=== PATIENT | female | born 1975 | race Caucasian/White ===

== ENCOUNTER 2016-06-06 09:57 | Inpatient (IN) | payer MEDICAID, OTHER ==
--- NOTE | 2016-06-06 09:54 | EDPHY ---
HPI/HX/ROS/PE/MDM Narrative: CHIEF COMPLAINT: Abdominal pain, vomiting with black emesis HPI: The patient is a 38 y/o female, with a history of alcohol-induced pancreatitis, arriving via EMS complaining of worsening RLQ abdominal pain and vomiting for the last 24 hours. She reports multiple episodes of vomiting since yesterday with progressively darker emesis that became black last night. She has been unable to keep fluids down at all. EMS administered 5mg IV morphine, which improved her pain from 10/10 to 6/10 in severity. She denies associated fever. She denies history of abdominal surgeries or GI bleeds. Her last menstrual period finished yesterday; she noted her cycle was co founder and director and more intermittent than normal. REVIEW OF SYSTEMS: Aside from elements discussed in the HPI, a comprehensive 10-point review of systems was reviewed and is negative. PMH: alcohol-related pancreatitis confirmed by imaging SOCIAL HISTORY: Lives in [place]. No recent illicit drugs or alcohol use. 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 PCP: Dr. Conley PHYSICAL EXAM: General:Patient is alert, in no acute distress. Appears uncomfortable. ENT:Eyes are normal to inspection. ENT inspection normal. Neck: Normal inspection. Full range of motion. Respiratory:No respiratory distress. Breath sounds normal bilaterally. Cardiovascular: Regular rate and rhythm. Strong peripheral pulses. Normal cap refill. Abdomen:The abdomen has moderate RLQ tenderness to palpation with voluntary guarding. There are no peritoneal signs. There are normal bowel sounds. Back: Normal to inspection. No tenderness to palpation. Skin: Normal color. No rash. Warm and dry. Extremities: Normal appearance. Full range of motion. Neuro: Oriented x3. Normal motor function. Normal sensory function. Mildly tremulous. ED Course: This is a 40 y/o female, with a recent diagnosis of alcohol-induced pancreatitis , who presents with a 24-hour history of RLQ abdominal pain and multiple episodes of vomiting with coffee ground emesis. She denies recent alcohol use and has no prior history of GI bleeds or abdominal surgeries. She has moderate RLQ tenderness on exam and is mildly tremulous. She notes her LMP was somewhat abnormal. Plan for complete abdominal pain work up including UA, IV, labs, abdominal CT, and symptom management. 1mg IV Ativan, 4mg IV Zofran, and 1L IV NS administered. Study: CT of the Abdomen Indication: Pain, vomiting Results: CT scan of the abdomen was obtained. The results of the study are 1. No appendicitis. 2. Suspect remote ascending colitis. No evidence of active colitis on this exam. The terminal ileum is normal. 3. Mild hepatomegaly with steatosis. The study was read by the radiologist, Dr. Mei. I viewed the images myself on the PACS system. Several labs are abnormal including an elevated WBC at 19, CO2 of 9, elevated lipase, and abnormal LFTs. It's possible the patient's symptoms are related to alcohol withdrawal and pancreatitis. Abdominal US ordered. 1220: Additional 2mg IV Ativan administered. She reported to the RN she last consumed several shots of vodka on Tuesday, 3 days ago. Patient will require admission. Study: Ultrasound of the: Abdomen Indication: Pancreatitis, pain Results: US scan of the abdomen was obtained. The results of the study are 1. No gallstones or biliary obstruction. 2. Enlarged fatty liver. The study was read by the radiologist, Dr. Mei. I viewed the images myself on the PACS system. 1243: Spoke with hospitalist service. Dr. Mills accepts admission. 1311: RN informs me the patient is now hallucinating. Since she has perceptual disturbance associated with her alcohol withdrawal, she will now require an ICU bed. Hospitalist paged. Additional 2mg IV Ativan administered. MDM: This patient presents primarily with RLQ pain of unknown etiology. However, she appears to be suffering from acute pancreatitis, which may be source of pain , and is also in severe alcohol withdrawal, which progressed quite quickly over the course of her ED stay. She requires admission to the hospital for further testing and treatment. - Data Points Laboratory Results: Laboratory Results 06/06/16 09:58 06/06/16 09:58 06/06/16 06/06/16 06/06/16 09:58 09:58 09:58 WBC RBC Hgb Hct MCV MCH MCHC RDW Plt Count MPV Neut % (Auto) Lymph % (Auto) [place] % (Auto) Eos % (Auto) Baso % (Auto) Nucleat RBC Rel Count Absolute Neuts (auto) Absolute Lymphs (auto) Absolute Monos (auto) Absolute Eos (auto) Absolute Basos (auto) Absolute Nucleated RBC Immature Gran % Immature Gran # PT 15.0 SEC SEC (12.0-15.0) INR 1.18 H (0.83-1.16) APTT 26.2 SEC SEC (23.0-38.0) Sodium 137 mEq/L mEq/L (134-144) Potassium 5.1 mEq/L mEq/L (3.5-5.2) Chloride 96 mEq/L L mEq/L (97-110) Carbon Dioxide 9 mEq/l L* mEq/l (22-31) Anion Gap 32 mEq/L H mEq/L (8-16) BUN 12 mg/dL mg/dL (7-23) Creatinine 1.2 mg/dL H mg/dL (0.6-1.0) Estimated GFR 50 Glucose 231 mg/dL H mg/dL (70-100) Calcium 9.2 mg/dL mg/dL (8.5-10.4) Total Bilirubin 2.4 mg/dL H mg/dL (0.1-1.4) Conjugated Bilirubin 1.3 mg/dL H mg/dL (0.0-0.5) Unconjugated Bilirubin 1.1 mg/dL mg/dL (0.0-1.1) AST 352 IU/L H IU/L (14-46) ALT 179 IU/L H IU/L (9-52) Alkaline Phosphatase 134 IU/L H IU/L (38-126) Total Protein 9.5 g/dL H g/dL (6.3-8.2) Albumin 5.8 g/dL H g/dL (3.5-5.0) Lipase 1176.0 IU/L H IU/L (23-300) Beta HCG, Qual NEGATIVE 06/06/16 09:58 WBC 19.01 10^3/uL H 10^3/uL (3.80-9.50) RBC 4.29 10^6/uL 10^6/uL (4.18-5.33) Hgb 16.2 g/dL g/dL (12.6-16.3) Hct 48.8 % H % (38.0-47.0) MCV 113.8 fL H fL (81.5-99.8) MCH 37.8 pg H pg (27.9-34.1) MCHC 33.2 g/dL g/dL (32.4-36.7) RDW 13.0 % % (11.5-15.2) Plt Count 137 10^3/uL L 10^3/uL (150-400) MPV 11.9 fL H fL (8.7-11.7) Neut % (Auto) 90.4 % H % (39.3-74.2) Lymph % (Auto) 2.0 % L % (15.0-45.0) [place] % (Auto) 6.7 % % (4.5-13.0) Eos % (Auto) 0.0 % L % (0.6-7.6) Baso % (Auto) 0.2 % L % (0.3-1.7) Nucleat RBC Rel Count 0.0 % % (0.0-0.2) Absolute Neuts (auto) 17.18 10^3/uL H 10^3/uL (1.70-6.50) Absolute Lymphs (auto) 0.38 10^3/uL L 10^3/uL (1.00-3.00) Absolute Monos (auto) 1.28 10^3/uL H 10^3/uL (0.30-0.80) Absolute Eos (auto) 0.00 10^3/uL L 10^3/uL (0.03-0.40) Absolute Basos (auto) 0.04 10^3/uL 10^3/uL (0.02-0.10) Absolute Nucleated RBC 0.00 10^3/uL 10^3/uL (0-0.01) Immature Gran % 0.7 % % (0.0-1.1) Immature Gran # 0.13 10^3/uL H 10^3/uL (0.00-0.10) PT INR APTT Sodium Potassium Chloride Carbon Dioxide Anion Gap BUN Creatinine Estimated GFR Glucose Calcium Total Bilirubin Conjugated Bilirubin Unconjugated Bilirubin AST ALT Alkaline Phosphatase Total Protein Albumin Lipase Beta HCG, Qual Medications Given: Discontinued Medications Sodium Chloride (Ns) 1,000 mls @ 0 mls/hr IV ONCE ONE PRN Reason: Wide Open Stop: 06/06/16 10:06 Last Admin: 06/06/16 10:22 Dose: 1,000 mls Lorazepam (Ativan Injection) 1 mg IVP EDNOW ONE Stop: 06/06/16 11:56 Last Admin: 06/06/16 11:56 Dose: 1 mg Lorazepam (Ativan Injection) 2 mg IVP EDNOW ONE Stop: 06/06/16 12:20 Last Admin: 06/06/16 12:20 Dose: 2 mg Lorazepam (Ativan Injection) 2 mg IVP EDNOW ONE Stop: 06/06/16 13:16 Last Admin: 06/06/16 13:15 Dose: 2 mg Ondansetron HCl (Zofran) 4 mg IVP EDNOW ONE Stop: 06/06/16 11:56 Last Admin: 06/06/16 11:56 Dose: 4 mg General Initial Vital Signs: Initial Vital Signs Temperature (C) 37.1 C 06/06/16 10:16 Heart Rate 124 H 06/06/16 10:16 Respiratory Rate 18 06/06/16 10:16 Blood Pressure 120/78 06/06/16 10:16 O2 Sat (%) 94 06/06/16 10:16 O2 Delivery Mode Nasal Cannula O2 (L/minute) 1 Allergies/Adverse Reactions: No Known Allergies Allergy (Unverified 04/04/13 11:51) Home Medications: Medication Instructions Recorded traZODone [traZODONE 50MG (*)] 50 mg PO HS PRN 06/06/16 Departure - Departure Disposition: [facility] Inpatient Acute Clinical Impression: Pancreatitis Qualifiers: Chronicity: chronic Pancreatitis type: alcohol induced Qualified Code(s): K86.0 - Alcohol-induced chronic pancreatitis Alcohol withdrawal Qualifiers: Complication of substance-induced condition: with perceptual disturbance Qualified Code(s): F10.232 - Alcohol dependence with withdrawal with perceptual disturbance Condition: Serious Report Scribed for: Kolton Kang Report Scribed by: Gladis Srivastava Date of Report: 06/06/16 Time of Report: 09:51 Physician Review and Approval Statement: Portions of this note were transcribed by an ED scribe. I personally performed the history, physical exam, and medical decision making; and confirm the accuracy of the information in the transcribed note.
[2016-06-06] MEDS ORDERED: NS 1,000 ML IV ONE (10:05)
[2016-06-06 10:18] LABS: % IMMATURE GRANULYOCYTES 0.7 % (0.0-1.1); ABSOLUTE IMMATURE GRANULOCYTES 0.13 10^3/uL (0.00-0.10); ADD DIFF? NO; ADD MORPH? NO; ADD SCAN? NO; ATYPICAL LYMPHOCYTE FLAG 0 (0-99); FRAGMENT RBC FLAG 0 (0-99); HEMATOCRIT 48.8 % (38.0-47.0); HEMOGLOBIN 16.2 g/dL (12.6-16.3); LEFT SHIFT FLG 10 (0-99); LIPEMIA HEMOLYSIS FLAG 80 (0-99); MEAN CELL HEMOGLOBIN 37.8 pg (27.9-34.1); MEAN CELL HEMOGLOBIN CONCENTR. 33.2 g/dL (32.4-36.7); MEAN CELL VOLUME 113.8 fL (81.5-99.8); MEAN PLATELET VOLUME 11.9 fL (8.7-11.7); PLATELET CLUMPS FLAG 0 (0-99); PLATELET COUNT 137 10^3/uL (150-400); RED BLOOD CELL COUNT 4.29 10^6/uL (4.18-5.33)
[2016-06-06 10:33] LABS: INR 1.18 (0.83-1.16)
[2016-06-06 10:34] LABS: APTT 26.2 SEC (23.0-38.0)
[2016-06-06 10:36] LABS: ANION GAP 32 mEq/L (8-16); CALCIUM 9.2 mg/dL (8.5-10.4); CHLORIDE 96 mEq/L (97-110); CREATININE 1.2 mg/dL (0.6-1.0); GLOMERULAR FILTRATION RATE 50; GLUCOSE 231 mg/dL (70-100); POTASSIUM 5.1 mEq/L (3.5-5.2); SODIUM 137 mEq/L (134-144); TOTAL PROTEIN 9.5 g/dL (6.3-8.2)
[2016-06-06 10:37] LABS: ALANINE AMINOTRANSFERASE 179 IU/L (9-52); ALBUMIN 5.8 g/dL (3.5-5.0); ALKALINE PHOSPHATASE 134 IU/L (38-126); ASPARTATE AMINOTRANSFERASE 352 IU/L (14-46); BILIRUBIN,TOTAL 2.4 mg/dL (0.1-1.4); BILIRUBIN-CONJUGATED 1.3 mg/dL (0.0-0.5); BILIRUBIN-UNCONJUGATED 1.1 mg/dL (0.0-1.1)
[2016-06-06 10:38] LABS: CARBON DIOXIDE 9 mEq/l (22-31)
[2016-06-06] MEDS ORDERED: IOPAMIDOL (ISOVUE-300) 100 ML BTL IV ONE (10:44)
[2016-06-06] MEDS ORDERED: LORazepam 2 MG/ML INJ ONE (11:47)
[2016-06-06] MEDS ORDERED: ONDANSETRON 4 MG/2 ML VIAL ONE (11:48)
[2016-06-06] MEDS ORDERED: LORazepam 2 MG/ML INJ IVP ONE ×3 (11:55→13:15)
[2016-06-06] MEDS ORDERED: ONDANSETRON 4 MG/2 ML VIAL IVP ONE (11:55)
[2016-06-06] MEDS ORDERED: ONDANSETRON 4 MG/2 ML VIAL IVP PRN (14:02)
[2016-06-06] MEDS ORDERED: PROMETHAZINE HCL 25 MG TAB PO PRN (14:05)
[2016-06-06] MEDS ORDERED: PROMETHAZINE HCL 25 MG SUPPR PR PRN (14:05)
[2016-06-06] MEDS ORDERED: fentaNYL 100 MCG/2 ML INJ IVP PRN (14:05)
[2016-06-06] MEDS ORDERED: MIDAZOLAM 2 MG/2 ML VIAL IVP PRN (14:05)
[2016-06-06] MEDS ORDERED: ACETAMINOPHEN 325 MG TAB PO PRN (14:05)
[2016-06-06] MEDS ORDERED: ACETAMINOPHEN 325 MG SUPP PR PRN (14:05)
[2016-06-06] MEDS: LR 1,000 ML IV SCH ×2 (16:42→21:19)
[2016-06-06] MEDS: DEXMEDETOMIDINE HCL 400 MCG in NS 100 ML IV SCH (17:03)
--- NOTE | 2016-06-06 17:19 | PDGENHP ---
History and Physical History and Physical: Chief complaint: Intractable intractable nausea and vomiting History of present illness: The patient is a 40-year-old female with past medical history of alcohol pancreatitis who presented with intractable nausea, vomiting, abdominal pain. Nausea and vomiting started 24 hours ago. She claims to have vomited 115 times. Vomitus is described as yellow initially, but in the last few hours has turn black. She denies coffee-grounds in her vomitus. She denies any history vomiting blood. Abdominal pain is described as dull, but is occasionally sharp and is located in the right lower quadrant with radiation to the low back. Severity is 9/10. Resting helps the pain feel better. Movement makes the pain worse. Patient denies any diarrhea or constipation. She denies any blood in her stool. Patient says that she drinks 3-4 drinks nightly. She used to drink more, but cut back after she had pancreatitis last October. Patient c/o extreme thirst and is requesting water. She admits to developing a tremor when she has not consumed alcohol in a day. Per RN, patient was hallucinating intermittently today. Past medical history: Alcohol induced pancreatitis Past surgical history: No surgeries Medications: No medications Allergies: No known allergies Social history: Patient drinks about 4 alcoholic beverages each night. She drinks beer, wine, and cocktails. Patient smokes both cigarettes and marijuana occasionally. She denies any other drug use. She lives alone with her dog. 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 Family history: Her father from an [place] at the age of 52. Her brother from a drug overdose at the age 52. Review of systems: 10 point review of systems was conducted and is negative except per HPI Physical exam: Vitals: Reviewed. Tachycardia noted. General: The patient is a thin female who is lethargic and in moderate acute distress. HEENT: normocephalic, conjunctivae clear, no lesions on face. Mucous membranes dull and dry appearing. Neck: trachea midline, no visible masses, no external lesions. Abd: soft and nondistended. Bowel sounds present. Tender to deep palpation in RLQ > RUQ > LLQ > midepigastrium. No rebound tenderness or guarding. Musculoskeletal: Normal muscle tone and bulk. Moves all extremities equally. Neuro: cranial nerves II XII grossly intact. Intact gross motor and sensory function. +tremor w/ outstretching hands, but not full asterixis. Psych: Patient is intermittently confused. Skin: No pallor. Heme/lymph: No peripheral edema. Labs (personally interpreted): Lipase 1100, WBC 20, platelets 137, MCV 114, hematocrit 49, INR 1.2, CO2 9, anion gap 32, creatinine 1.2, elevated total/ conjugated bilirubin, elevated AST/ALT/alk-phos. Elevated total protein/ albumin. Negative beta HCG. Other Data (reviewed reports): Abdomen CT: No appendicitis. Suspect remote ascending colitis. Mild hepatomegaly with steatosis. Gallbladder distended without evidence of cholecystitis. Pancreas appears normal with 2 small benign lipomas in the body and tail. Abdomen ultrasound: Enlarged fatty liver. No gallstones or biliary obstruction. Pancreas poorly visualized. Impression and plan: Acute pancreatitis Colitis Intractable nausea/vomiting - controlled Acute dehydration Sinus tachycardia High anion gap metabolic acidosis Suspect alcoholic ketoacidosis Acute metabolic/toxic encephalopathy Acute alcohol withdrawal Alcohol abuse Suspect alcoholic fatty liver disease Abnormal liver function tests Coagulopathy Thrombocytopenia Macrocytosis SIRS, 2/2 pancreatitis and alcohol withdrawal -NPO except meds. -IVF hydration. Received about 3L NS in ED. Put her on maintenance high rate 200cc/hr LR. Decrease rate in AM if she is rehydrated. -Recheck BMP now that she has had some IVF. Expect HAGMA to improve w/ fluids. If not, will need additional workup. -Checking other labs: mag, hbA1c (no h/o DM), lactic acid. -Replace electrolytes as needed. Electrolyte ICU protocol. -Precedex gtt and Ativan scheduled, with prn additional meds for withdrawal ( midazolam, haloperidol). Monitor resp status closely - if she has resp depression, may need to be intubated. -Prn IV antiemetics. -prn narcotics for pain - caution use w/ lethargy/encephalopathy. -Ativan prn seizure, seizure assessment/precautions. -Thiamine IVP today. -VTE ppx - SCDs. -GI ppx - IV famotidine. -Code status - full code. -DISPO: Inpatient, ICU for close monitoring >60 minutes of CC time was spent for this patient, >50% of which was spent counseling and coordinating patient care.
[2016-06-06] MEDS ORDERED: THIAMINE HCL 500 MG in NS 100 ML IV ONE (17:51)
[2016-06-06] MEDS ORDERED: *PHM DO NOT USE-LORazepam 1 MG/ML IV NEWBORN SYR IV PRN (18:16)
[2016-06-06] MEDS ORDERED: LORazepam 2 MG/ML INJ IV PRN (18:20)
[2016-06-06] MEDS ORDERED: PROTOCOL POTASSIUM 1 DOSE MISC PRN (18:33)
[2016-06-06] MEDS ORDERED: PROTOCOL K PHOSPHATE 1 DOSE IV PRN (18:33)
[2016-06-06] MEDS ORDERED: PROTOCOL MAGNESIUM 1 DOSE IV PRN (18:33)
[2016-06-06 18:34] LABS: ETHANOL SERUM < 10 mg/dL (0-10)
[2016-06-06 19:08] LABS: COLOR YELLOW; LEUKOCYTE ESTERASE,URINE NEGATIVE (NEGATIVE); NITRITE,URINE NEGATIVE (NEGATIVE)
[2016-06-06 19:10] LABS: ANION GAP 11 mEq/L (8-16); CALCIUM 7.8 mg/dL (8.5-10.4); CARBON DIOXIDE 19 mEq/l (22-31); CHLORIDE 105 mEq/L (97-110); CREATININE 0.8 mg/dL (0.6-1.0); GLOMERULAR FILTRATION RATE > 60; GLUCOSE 134 mg/dL (70-100); POTASSIUM 5.3 mEq/L (3.5-5.2); SODIUM 135 mEq/L (134-144)
[2016-06-06 19:12] LABS: MUCUS TRACE /lpf (NONE-1+)
[2016-06-06] MEDS: LORazepam 1 MG TAB PO SCH ×2 (20:21→23:42)
[2016-06-06] MEDS: FAMOTIDINE 20 MG/NACL 50 ML IV SCH (21:19)
[2016-06-07 01:22] LABS: HEMOGLOBIN A1C 5.7 % (4.0-6.0)
[2016-06-07 04:41] LABS: % IMMATURE GRANULYOCYTES 0.4 % (0.0-1.1); ABSOLUTE IMMATURE GRANULOCYTES 0.04 10^3/uL (0.00-0.10); ADD DIFF? NO; ADD MORPH? NO; ADD SCAN? NO; ATYPICAL LYMPHOCYTE FLAG 0 (0-99); FRAGMENT RBC FLAG 0 (0-99); HEMATOCRIT 32.6 % (38.0-47.0); HEMOGLOBIN 11.3 g/dL (12.6-16.3); LEFT SHIFT FLG 0 (0-99); LIPEMIA HEMOLYSIS FLAG 90 (0-99); MEAN CELL HEMOGLOBIN 37.8 pg (27.9-34.1); MEAN CELL HEMOGLOBIN CONCENTR. 34.7 g/dL (32.4-36.7); MEAN PLATELET VOLUME 10.9 fL (8.7-11.7); PLATELET CLUMPS FLAG 0 (0-99); PLATELET COUNT 77 10^3/uL (150-400); RED BLOOD CELL COUNT 2.99 10^6/uL (4.18-5.33)
[2016-06-07 05:13] LABS: ANION GAP 8 mEq/L (8-16); CARBON DIOXIDE 21 mEq/l (22-31); CHLORIDE 108 mEq/L (97-110); CREATININE 0.7 mg/dL (0.6-1.0); GLOMERULAR FILTRATION RATE > 60; GLUCOSE 85 mg/dL (70-100); MAGNESIUM 1.9 mg/dL (1.6-2.3); POTASSIUM 4.7 mEq/L (3.5-5.2); SODIUM 137 mEq/L (134-144)
[2016-06-07] MEDS: LORazepam 1 MG TAB PO SCH ×2 (05:44→12:40)
[2016-06-07] MEDS: FAMOTIDINE 20 MG/NACL 50 ML IV SCH (08:42)
[2016-06-07] MEDS ORDERED: METHOCARBAMOL 750 MG TAB TUBE PRN (09:52)
[2016-06-07] MEDS ORDERED: K PHOS 20 MMOL in D5W 250 ML IV ONE (12:00)
[2016-06-07] MEDS ORDERED: SODIUM PHOS 20 MM in D5W 250 ML IV ONE (12:00)
--- NOTE | 2016-06-07 12:35 | HOSPPROG ---
Hospitalist Progress Note Assessment/Plan: # acidosis - likely ketoacidosis. resolved # pancreatitis - unclear severity; still not tolerating PO - cont supportive care # etOH abuse and withdrawal - cont CIWA, thiamine; she is off precedex - CM will give her resources for cessation; her mother is traveling to [place] today # hepatitis, suspect etOH - low DF, no steroids - check viral serologies, follow LFTs # possible GI bleed - Vilma Leonardo? - follow h/h again this afternoon - start protonix IV # thrombocytopenia - follow ## new pt to me chart reviewed CT and US reviewed discussed on ICU rounds with Dr Tavares Subjective: wants to eat; had emesis when she tried to eat Objective: Vital Signs Temp Pulse Resp BP Pulse Ox 37.0 C 79 18 115/74 94 06/07/16 12:00 06/07/16 12:00 06/07/16 12:00 06/07/16 12:00 06/07/16 10:00 Laboratory Results 06/07/16 04:30 06/07/16 04:30 06/06/16 06/07/16 06/08/16 05:59 05:59 05:59 Intake Total 7628.4 Output Total 950 300 Balance 6678.4 -300 PT 15.0 SEC (12.0-15.0) 06/06/16 09:58 INR 1.18 (0.83-1.16) H 06/06/16 09:58 - Physical Exam Constitutional: no apparent distress, appears nourished Cardiovascular: regular rate and rhythym, no murmur, rub, or gallop, systolic murmur Respiratory: no respiratory distress, no rales or rhonchi, clear to auscultation Gastrointestinal: normoactive bowel sounds, other (soft, mild TTP, no HSM) ICD10 Worksheet Patient Problems: Problems Problem Status Onset Pancreatitis Acute Alcohol withdrawal Acute
[2016-06-07 12:53] LABS: HEMATOCRIT 31.2 % (38.0-47.0); HEMOGLOBIN 10.7 g/dL (12.6-16.3)
[2016-06-07] MEDS: PANTOPRAZOLE SODIUM 40 MG in NS 100 ML IV SCH ×2 (14:01→20:11)
[2016-06-07] MEDS: HALOPERIDOL LACT 5 MG/ML INJ IVP PRN (17:22)
[2016-06-07] MEDS: LORazepam 2 MG/ML INJ IV PRN ×3 (17:22→17:28)
[2016-06-07 18:27] LABS: POTASSIUM 3.4 mEq/L (3.5-5.2)
[2016-06-07] MEDS: POTASSIUM Cl (KCl) 100 ML IV SCH ×2 (20:11→22:08)
[2016-06-07] MEDS: DEXMEDETOMIDINE HCL 400 MCG in NS 100 ML IV SCH (20:11)
[2016-06-07] MEDS: NS 1,000 ML IV SCH (20:12)
--- NOTE | 2016-06-07 21:22 | GCON ---
[f rep st] CONSULTATION PULMONARY CRITICAL CARE CONSULTATION REASON FOR CONSULTATION: Intensive care unit evaluation and management of alcohol withdrawal associ ated with nausea and vomiting, and acute pancreatitis. HISTORY: The patient is a 40-year-old chronic alcoholic, who was admitted yesterday with persistent nausea and vomiting. This has been present for up to 24 hours prior to admission, and she vomited many times. Towards the end, it was dark, with some blood in it. She had some abdominal pain as we ll. She drinks 4 drinks nightly. She does have a history of previous pancreatitis, as well as alco hol withdrawal. Following admission, she had signs and symptoms of alcohol withdrawal and hallucina tions. PAST MEDICAL HISTORY: Remarkable for issues related to chronic alcohol abuse. She has had pancreat itis in the past. SOCIAL HISTORY: The patient drinks at least 4 drinks per night. These could include hard alcohol, beer or wine. She does smoke cigarettes, less than a half-pack a day. 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 She uses marijuana as well. She is single, with some friends. Her [facility] er lives out of town. FAMILY HISTORY: Coronary artery disease in her father. REVIEW OF SYSTEMS: She denies shortness of breath, cough or mucus. She denies heart disease. Ther e is no history of arrhythmias. She does acknowledge she drinks too much. There is no history of t hromboembolic disease, lower extremity edema, etc. PHYSICAL EXAMINATION: GENERAL: Reveals a pleasant woman who is not agitated currently, but has bee n agitated intermittently. She is confused, but oriented to person, place, and the month and year. VITAL SIGNS: Blood pressure is 112/97, heart rate 74, respiratory rate 18. She is on room air, wi th saturations of 98%. She is afebrile. HEENT: Remarkable for dry mucous membranes. NECK: There is no lymphadenopathy or thyromegaly. There is no jugular venous distention. CHEST: Clear, but s omewhat coarse. There are no significant rales. HEART: Regular in rate and rhythm. There is a so ft systolic murmur. ABDOMEN: Soft and nontender. Bowel sounds are diminished, but present. EXTRE MITIES: Unremarkable for edema, cords or tenderness. NEUROLOGIC: Nonfocal. She has no significan t tremor currently. She is not diaphoretic. LABORATORY DATA: White blood cell count is 9600, hematocrit 31, down from 48 on admission. PT and PTT were normal. Blood lactate was 1 on admission. Basic metabolic panel is within normal limits. Calcium and phosphorus are both low. Urinalysis is unremarkable. Hepatitis B serology is negative . Blood alcohol on admission was less than 10. ASSESSMENT: 1. Acute pancreatitis. Lipase was approximately 1000. CT scan did not show significant abnormalit ies. She is being treated with pantoprazole, and is being kept on clear liquids for now. Her nause a and vomiting have resolved. This may have been more related to alcoholic gastritis than to acute pancreatitis? 2. Nausea and vomiting, with volume depletion. She has received intravenous fluids, and is signifi cantly better. She may have had a Vilma-Leonardo tear, as there was some bleeding. However, there i s no further evidence of any active bleeding, and hematocrit is stable in the low 30s. Upper endosc opy is not currently indicated. 3. Alcohol withdrawal. She is withdrawing from alcohol, and is being treated with Precedex, Ativan , and the CIWA protocol. We will try to wean the Precedex off over the next 24 or perhaps 48 hours. The CIWA protocol will be continued. 4. Gastrointestinal prophylaxis: Pantoprazole. 5. Deep vein thrombosis prophylaxis: We will add Lovenox. PLAN: The patient will be kept in the intensive care unit, and treated with Precedex and with the C IWA protocol. Intravenous fluids will be continued. Clear liquids will be continued. Laboratory, including lipase will be followed. Thiamin will be maintained. Antiemetics will be given as needed . Electrolytes will be replaced per protocol. Further plans and recommendations will be made based on her progress over the next 12-24 hours. /[id number]/MODL
[2016-06-07] MEDS: LORazepam 2 MG/ML INJ IVP PRN (22:08)
[2016-06-08] MEDS: POTASSIUM Cl (KCl) 100 ML IV SCH ×6 (00:12→22:14)
[2016-06-08] MEDS: DEXMEDETOMIDINE HCL 400 MCG in NS 100 ML IV SCH ×3 (00:13→20:42)
[2016-06-08] MEDS: LORazepam 2 MG/ML INJ IVP PRN ×2 (00:40→20:42)
[2016-06-08 04:19] LABS: % IMMATURE GRANULYOCYTES 0.5 % (0.0-1.1); ABSOLUTE IMMATURE GRANULOCYTES 0.04 10^3/uL (0.00-0.10); ADD DIFF? NO; ADD MORPH? NO; ADD SCAN? NO; ATYPICAL LYMPHOCYTE FLAG 0 (0-99); FRAGMENT RBC FLAG 0 (0-99); HEMATOCRIT 36.2 % (38.0-47.0); HEMOGLOBIN 12.5 g/dL (12.6-16.3); LEFT SHIFT FLG 0 (0-99); LIPEMIA HEMOLYSIS FLAG 90 (0-99); MEAN CELL HEMOGLOBIN 37.8 pg (27.9-34.1); MEAN CELL HEMOGLOBIN CONCENTR. 34.5 g/dL (32.4-36.7); MEAN CELL VOLUME 109.4 fL (81.5-99.8); MEAN PLATELET VOLUME 11.5 fL (8.7-11.7); PLATELET CLUMPS FLAG 20 (0-99); PLATELET COUNT 76 10^3/uL (150-400); RED BLOOD CELL COUNT 3.31 10^6/uL (4.18-5.33); RED CELL DISTRIBUTION WIDTH 13.2 % (11.5-15.2)
[2016-06-08 04:33] LABS: ALANINE AMINOTRANSFERASE 80 IU/L (9-52); ALBUMIN 3.2 g/dL (3.5-5.0); ALKALINE PHOSPHATASE 71 IU/L (38-126); ANION GAP 9 mEq/L (8-16); ASPARTATE AMINOTRANSFERASE 104 IU/L (14-46); BILIRUBIN,TOTAL 1.4 mg/dL (0.1-1.4); BILIRUBIN-CONJUGATED 0.6 mg/dL (0.0-0.5); BILIRUBIN-UNCONJUGATED 0.8 mg/dL (0.0-1.1); CARBON DIOXIDE 21 mEq/l (22-31); CHLORIDE 108 mEq/L (97-110); CREATININE 0.5 mg/dL (0.6-1.0); GLOMERULAR FILTRATION RATE > 60; GLUCOSE 101 mg/dL (70-100); MAGNESIUM 2.1 mg/dL (1.6-2.3); POTASSIUM 3.8 mEq/L (3.5-5.2); SODIUM 138 mEq/L (134-144); TOTAL PROTEIN 5.4 g/dL (6.3-8.2)
[2016-06-08] MEDS: NS 1,000 ML IV SCH (04:51)
[2016-06-08] MEDS: PANTOPRAZOLE SODIUM 40 MG in NS 100 ML IV SCH ×2 (09:25→20:54)
[2016-06-08] MEDS: LORazepam 2 MG/ML INJ IVP SCH ×4 (10:05→22:17)
--- NOTE | 2016-06-08 11:22 | HOSPPROG ---
Hospitalist Progress Note Assessment/Plan: # etOH abuse and withdrawal, severe - cont precedex, scheduled ativan, thiamine - try to deescalate sedatives as tolerated # pancreatitis - unclear severity; NPO, supportive care for now # acidosis - likely ketoacidosis, resolved # hepatitis, suspect etOH - low DF, no steroids - LFTs better # possible GI bleed, Vilma Leonardo? - H/H stable - protonix IV for now # thrombocytopenia - follow ## high risk given the severity of her w/d Subjective: restful night after severe agitation controlled with ativan, precedex and haldol. discussed with her mother Objective: Vital Signs Temp Pulse Resp BP Pulse Ox 36.6 C 54 L 12 132/97 H 100 06/08/16 00:00 06/08/16 06:00 06/08/16 06:00 06/08/16 06:00 06/08/16 06:00 Laboratory Results 06/08/16 04:03 06/08/16 04:03 06/07/16 06/08/16 06/09/16 05:59 05:59 05:59 Intake Total 7628.4 2445 Output Total 950 2200 120 Balance 6678.4 245 -120 PT 15.0 SEC (12.0-15.0) 06/06/16 09:58 INR 1.18 (0.83-1.16) H 06/06/16 09:58 - Physical Exam Constitutional: other (somnolent) Cardiovascular: regular rate and rhythym, no murmur, rub, or gallop Respiratory: no respiratory distress, no rales or rhonchi, clear to auscultation Gastrointestinal: normoactive bowel sounds, soft, non-tender abdomen, no palpable masses ICD10 Worksheet Patient Problems: Problems Problem Status Onset Pancreatitis Acute Alcohol withdrawal Acute
[2016-06-08] MEDS ORDERED: K PHOS 10 MMOL in D5W 250 ML IV ONE (12:00)
[2016-06-08 13:10] LABS: POTASSIUM 4.5 mEq/L (3.5-5.2)
--- NOTE | 2016-06-08 14:58 | PDINTPN ---
House Visitor Progress Note Assessment/Plan: Assessment: Alcohol withdrawal. Severely agitated yesterday, requiring high-dose Precedex, Ativan, Haldol, etc. Needed restraints to keep herself from harming herself or others. Calmer today secondary to medications but remains quite sedated. No medical issues with this. Vital signs fine, respiratory status normal. Delirium: As above Nausea vomiting: Resolved. Associated with pancreatitis by enzymes only. CT of the pancreas was normal. DVT prophylaxis: Lovenox GI prophylaxis: Pantoprazole. Metabolic: On replacement electrolyte protocols. LFTs increased secondary to chronic alcohol abuse. Platelets decreased secondary to the same Plan: Continue CIWA protocol, thiamine, etc. Decrease Ativan and Precedex as tolerated. Follow laboratory. Continue electrolyte replacement per protocols. Continue care in the intensive care unit secondary to mental status, Precedex , etc. Subjective: Somnolent secondary to medications this morning. Occasionally will arouse and communicate. In restraints, was quite agitated yesterday, a danger to herself and others. Objective: Vital Signs Temp Pulse Resp BP Pulse Ox 36.3 C 69 11 L 130/94 H 100 06/08/16 12:00 06/08/16 14:00 06/08/16 14:00 06/08/16 14:00 06/08/16 14:00 Laboratory Results 06/08/16 04:03 06/08/16 12:30 06/07/16 06/08/16 06/09/16 05:59 05:59 05:59 Intake Total 7628.4 2445 Output Total 950 2200 345 Balance 6678.4 245 -345 PT 15.0 SEC (12.0-15.0) 06/06/16 09:58 INR 1.18 (0.83-1.16) H 06/06/16 09:58 Laboratory Tests 06/08/16 04:03 Calcium 8.0 L Phosphorus 2.0 L D Magnesium 2.1 Total Bilirubin 1.4 AST 104 H ALT 80 H Albumin 3.2 L Physical Exam - Physical Exam General Appearance: no apparent distress, obtunded, No alert EENT: PERRL/EOMI, other (On room air) Neck: normal inspection Respiratory: lungs clear, decreased breath sounds, No rales, No rhonchi, No wheezing Cardiac/Chest: regular rate, rhythm Abdomen: non-tender, soft, No normal bowel sounds (Decreased, present) Pelvic Exam: other (Clark catheter placed last night) Skin: normal color, warm/dry Extremities: No pedal edema Neuro/Psych: no motor/sensory deficits, No oriented x 3 (Moves all extremities) , No cognition abnormalities ICD10 Worksheet Patient Problems: Problems Problem Status Onset Pancreatitis Acute Alcohol withdrawal Acute
[2016-06-08 17:50] LABS: POTASSIUM 3.1 mEq/L (3.5-5.2)
[2016-06-08] MEDS: HALOPERIDOL LACT 5 MG/ML INJ IVP PRN ×2 (18:34→23:04)
[2016-06-09] MEDS: DEXMEDETOMIDINE HCL 400 MCG in NS 100 ML IV SCH ×2 (00:53→06:44)
[2016-06-09] MEDS: LORazepam 2 MG/ML INJ IVP PRN (00:53)
[2016-06-09] MEDS: LORazepam 2 MG/ML INJ IVP SCH ×3 (01:39→10:00)
[2016-06-09 02:24] LABS: POTASSIUM 4.5 mEq/L (3.5-5.2)
[2016-06-09 03:45] LABS: % IMMATURE GRANULYOCYTES 0.7 % (0.0-1.1); ABSOLUTE IMMATURE GRANULOCYTES 0.06 10^3/uL (0.00-0.10); ADD DIFF? NO; ADD MORPH? NO; ADD SCAN? NO; ATYPICAL LYMPHOCYTE FLAG 10 (0-99); FRAGMENT RBC FLAG 0 (0-99); HEMOGLOBIN 12.8 g/dL (12.6-16.3); LEFT SHIFT FLG 0 (0-99); LIPEMIA HEMOLYSIS FLAG 90 (0-99); MEAN CELL HEMOGLOBIN 37.6 pg (27.9-34.1); MEAN CELL HEMOGLOBIN CONCENTR. 35.6 g/dL (32.4-36.7); MEAN CELL VOLUME 105.9 fL (81.5-99.8); MEAN PLATELET VOLUME 11.3 fL (8.7-11.7); PLATELET CLUMPS FLAG 0 (0-99); PLATELET COUNT 91 10^3/uL (150-400); RED CELL DISTRIBUTION WIDTH 12.7 % (11.5-15.2)
[2016-06-09 04:09] LABS: ANION GAP 13 mEq/L (8-16); CALCIUM 8.5 mg/dL (8.5-10.4); CARBON DIOXIDE 19 mEq/l (22-31); CHLORIDE 106 mEq/L (97-110); CREATININE 0.5 mg/dL (0.6-1.0); GLOMERULAR FILTRATION RATE > 60; GLUCOSE 78 mg/dL (70-100); MAGNESIUM 1.8 mg/dL (1.6-2.3); POTASSIUM 3.8 mEq/L (3.5-5.2); SODIUM 138 mEq/L (134-144)
[2016-06-09] MEDS ORDERED: MAGNESIUM SULF 1 GM/DEXTROSE 100 ML IV ONE (04:31)
[2016-06-09] MEDS: NS 1,000 ML IV SCH (04:57)
[2016-06-09] MEDS: POTASSIUM Cl (KCl) 100 ML IV SCH ×4 (05:41→16:45)
[2016-06-09] MEDS: PANTOPRAZOLE SODIUM 40 MG in NS 100 ML IV SCH (08:20)
[2016-06-09] MEDS ORDERED: LORazepam 2 MG/ML INJ IVP SCH (12:00)
[2016-06-09] MEDS ORDERED: K PHOS 10 MMOL in D5W 250 ML IV ONE (12:00)
[2016-06-09] MEDS: THIAMINE HCL 100 MG TAB PO SCH (12:56)
--- NOTE | 2016-06-09 13:29 | PDINTPN ---
Top Frame Maker Progress Note Assessment/Plan: Assessment: Alcohol withdrawal. Improving, off Precedex currently, can decrease Ativan and follow closely. Needed restraints to keep herself from harming herself or others initially. Delirium: As above, resolved Nausea vomiting: Resolved. Associated with pancreatitis by enzymes only. CT of the pancreas was normal. DVT prophylaxis: Lovenox GI prophylaxis: Pantoprazole. Metabolic: On replacement electrolyte protocols. LFTs increased secondary to chronic alcohol abuse. Platelets decreased secondary to the same Plan: Continue CIWA protocol, thiamine, etc. Decrease Ativan, hold Precedex if able. Follow laboratory. Continue electrolyte replacement per protocols. Continue care in the intensive care unit secondary to severity of alcohol withdrawal. If does well, can transfer out of the ICU later today or tomorrow, possibly discharge home soon. She will need alcohol counseling. In patient treatment could be considered if she and her family wants to an can go this route. Discussed with the patient's mother, nursing, and the ICU multi disciplinary team. Subjective: More alert, but still lethargic. Precedex weaned relatively rapidly this morning. Remains on scheduled Ativan. Objective: Vital Signs Temp Pulse Resp BP Pulse Ox 37.8 C 85 14 104/69 98 06/09/16 00:00 06/09/16 12:00 06/09/16 12:00 06/09/16 12:00 06/09/16 12:00 Laboratory Results 06/09/16 03:39 06/09/16 03:39 06/08/16 06/09/16 06/10/16 05:59 05:59 05:59 Intake Total 2445 2569 480 Output Total 2200 2420 800 Balance 245 149 -320 PT 15.0 SEC (12.0-15.0) 06/06/16 09:58 INR 1.18 (0.83-1.16) H 06/06/16 09:58 Laboratory Tests 06/09/16 03:39 Calcium 8.5 Phosphorus 1.8 L Magnesium 1.8 Physical Exam - Physical Exam General Appearance: no apparent distress, thin, other (Lethargic, arouses) EENT: PERRL/EOMI, other (On room air) Neck: normal inspection (No JVD) Respiratory: lungs clear, decreased breath sounds Cardiac/Chest: regular rate, rhythm Abdomen: normal bowel sounds, non-tender, soft Pelvic Exam: other (Clark catheter in place, to be removed) Skin: normal color, warm/dry Lymphatic: no adenopathy Extremities: No pedal edema Neuro/Psych: no motor/sensory deficits (Moves all extremities equally), cognition abnormalities (Improving) ICD10 Worksheet Patient Problems: Problems Problem Status Onset Pancreatitis Acute Alcohol withdrawal Acute
[2016-06-09] MEDS ORDERED: POTASSIUM Cl (KCl) 100 ML IV SCH (14:11)
[2016-06-09] MEDS ORDERED: PROTOCOL POTASSIUM 1 DOSE MISC PRN (14:33)
[2016-06-09] MEDS ORDERED: POTASSIUM CL 20 MEQ TAB PO ONE (15:00)
--- NOTE | 2016-06-09 15:36 | HOSPPROG ---
Hospitalist Progress Note Assessment/Plan: * Etoh withdrawal -off Precedex -wean benzos * Etoh pancreatitis -advancing diet * Etoh hepatitis -LFT improving -patient counselled regarding alcohol cessation * Possible GIB - ? MW tear -empiric PPI Subjective: Eating, off precedex, no agitation Objective: Vital Signs Temp Pulse Resp BP Pulse Ox 37.8 C 85 14 113/77 100 06/09/16 00:00 06/09/16 14:00 06/09/16 14:00 06/09/16 14:00 06/09/16 14:00 Laboratory Results 06/09/16 03:39 06/09/16 03:39 06/08/16 06/09/16 06/10/16 05:59 05:59 05:59 Intake Total 2445 2569 480 Output Total 2200 2420 800 Balance 245 149 -320 PT 15.0 SEC (12.0-15.0) 06/06/16 09:58 INR 1.18 (0.83-1.16) H 06/06/16 09:58 d/w Dr. Srinivas Tavares regarding benzo plan Abd US - fatty liver - Physical Exam Constitutional: no apparent distress, appears nourished, not in pain Cardiovascular: regular rate and rhythym, no murmur, rub, or gallop Respiratory: no respiratory distress, no rales or rhonchi, clear to auscultation Gastrointestinal: normoactive bowel sounds, soft, non-tender abdomen, no palpable masses Skin: no rashes or abrasions, no fluctuance, no induration Neurologic: AAOx3, sensation intact bilaterally Psychiatric: interacting appropriately, not anxious, not encephalopathic, thought process linear ICD10 Worksheet Patient Problems: Problems Problem Status Onset Alcohol withdrawal Acute Pancreatitis Acute
[2016-06-09 20:12] LABS: POTASSIUM 3.3 mEq/L (3.5-5.2)
[2016-06-09] MEDS ORDERED: POTASSIUM CL 10 MEQ TAB PO ONE (20:37)
[2016-06-09] MEDS ORDERED: FAMOTIDINE 20 MG TAB PO SCH (21:00)
[2016-06-09] MEDS: traZODone 50 MG TAB PO PRN (22:01)
[2016-06-10 04:01] LABS: % IMMATURE GRANULYOCYTES 1.1 % (0.0-1.1); ABSOLUTE IMMATURE GRANULOCYTES 0.08 10^3/uL (0.00-0.10); ADD DIFF? NO; ADD MORPH? NO; ADD SCAN? NO; ATYPICAL LYMPHOCYTE FLAG 10 (0-99); FRAGMENT RBC FLAG 0 (0-99); HEMATOCRIT 35.1 % (38.0-47.0); HEMOGLOBIN 12.8 g/dL (12.6-16.3); LEFT SHIFT FLG 10 (0-99); LIPEMIA HEMOLYSIS FLAG 90 (0-99); MEAN CELL HEMOGLOBIN CONCENTR. 36.5 g/dL (32.4-36.7); MEAN CELL VOLUME 104.2 fL (81.5-99.8); MEAN PLATELET VOLUME 10.9 fL (8.7-11.7); PLATELET CLUMPS FLAG 0 (0-99); PLATELET COUNT 117 10^3/uL (150-400); RED BLOOD CELL COUNT 3.37 10^6/uL (4.18-5.33); RED CELL DISTRIBUTION WIDTH 12.5 % (11.5-15.2)
[2016-06-10 04:18] LABS: ANION GAP 10 mEq/L (8-16); CALCIUM 8.5 mg/dL (8.5-10.4); CARBON DIOXIDE 24 mEq/l (22-31); CHLORIDE 102 mEq/L (97-110); CREATININE 0.5 mg/dL (0.6-1.0); GLOMERULAR FILTRATION RATE > 60; GLUCOSE 98 mg/dL (70-100); MAGNESIUM 1.7 mg/dL (1.6-2.3); POTASSIUM 3.5 mEq/L (3.5-5.2); SODIUM 136 mEq/L (134-144)
[2016-06-10] MEDS ORDERED: POTASSIUM CL 10 MEQ TAB PO ONE (06:14)
[2016-06-10] MEDS: THIAMINE HCL 100 MG TAB PO SCH (07:48)
[2016-06-10] MEDS: PANTOPRAZOLE SODIUM 40 MG TAB PO SCH (07:48)
[2016-06-10] MEDS: LORazepam 1 MG TAB PO PRN ×3 (07:48→21:42)
--- NOTE | 2016-06-10 16:56 | HOSPPROG ---
Hospitalist Progress Note Assessment/Plan: * Etoh withdrawal -off Precedex -wean benzos * Etoh pancreatitis -advancing diet * Etoh hepatitis -LFT improving -patient counselled regarding alcohol cessation * Possible GIB - ? MW tear -empiric PPI * Metabolic/toxic encephalopathy -mental status slowly clearly -poor ambulation with PT/OT -hopefully with clear in next 24-48 hours Subjective: no complaints. Objective: Vital Signs Temp Pulse Resp BP Pulse Ox 36.7 C 104 H 20 129/86 H 91 L 06/10/16 15:40 06/10/16 15:40 06/10/16 15:40 06/10/16 15:40 06/10/16 15:40 Laboratory Results 06/10/16 03:50 06/10/16 03:50 06/09/16 06/10/16 06/11/16 05:59 05:59 05:59 Intake Total 2569 2140 Output Total 2420 2500 2 Balance 149 -360 -2 PT 15.0 SEC (12.0-15.0) 06/06/16 09:58 INR 1.18 (0.83-1.16) H 06/06/16 09:58 - Physical Exam Constitutional: no apparent distress, appears nourished, not in pain Cardiovascular: regular rate and rhythym, no murmur, rub, or gallop Respiratory: no respiratory distress, no rales or rhonchi, clear to auscultation Gastrointestinal: normoactive bowel sounds, soft, non-tender abdomen, no palpable masses Skin: no rashes or abrasions, no fluctuance, no induration Neurologic: AAOx3, sensation intact bilaterally Psychiatric: interacting appropriately, not anxious, not encephalopathic, thought process linear ICD10 Worksheet Patient Problems: Problems Problem Status Onset Alcohol withdrawal Acute Pancreatitis Acute
[2016-06-10] MEDS: traZODone 50 MG TAB PO PRN (21:42)
[2016-06-11] MEDS: LORazepam 2 MG/ML INJ IVP PRN ×3 (00:51→13:51)
[2016-06-11 04:02] LABS: MAGNESIUM 1.7 mg/dL (1.6-2.3); POTASSIUM 3.3 mEq/L (3.5-5.2)
[2016-06-11] MEDS: PANTOPRAZOLE SODIUM 40 MG TAB PO SCH (08:27)
[2016-06-11] MEDS: THIAMINE HCL 100 MG TAB PO SCH (08:27)
[2016-06-11] MEDS: LORazepam 1 MG TAB PO PRN (08:28)
[2016-06-11] MEDS ORDERED: POTASSIUM CL 10 MEQ TAB PO ONE ×2 (10:30→19:22)
[2016-06-11] MEDS ORDERED: MAGNESIUM SULF 1 GM/DEXTROSE 100 ML IV ONE (10:48)
[2016-06-11] MEDS ORDERED: LORazepam 1 MG TAB PO SCH (14:10)
--- NOTE | 2016-06-11 15:07 | HOSPPROG ---
Hospitalist Progress Note Assessment/Plan: * Etoh withdrawal - CIWA still with elevated scores, active hallucinations -off Precedex -wean benzos * Etoh pancreatitis -advancing diet * Etoh hepatitis -LFT improving -patient counselled regarding alcohol cessation * Possible GIB - ? MW tear -empiric PPI * Metabolic/toxic encephalopathy -mental status slowly clearly -poor ambulation with PT/OT -hopefully with clear in next 24-48 hours Subjective: no new complaints. Objective: Vital Signs Temp Pulse Resp BP Pulse Ox 37.0 C 82 18 122/87 H 100 06/11/16 08:00 06/11/16 08:00 06/11/16 08:00 06/11/16 08:00 06/11/16 08:00 Laboratory Results 06/10/16 03:50 06/11/16 03:36 06/10/16 06/11/16 06/12/16 05:59 05:59 05:59 Intake Total 2140 1400 103 Output Total 2500 2 Balance -360 1398 103 PT 15.0 SEC (12.0-15.0) 06/06/16 09:58 INR 1.18 (0.83-1.16) H 06/06/16 09:58 - Physical Exam Constitutional: no apparent distress, appears nourished, not in pain Cardiovascular: regular rate and rhythym, no murmur, rub, or gallop Respiratory: no respiratory distress, no rales or rhonchi, clear to auscultation Gastrointestinal: normoactive bowel sounds, soft, non-tender abdomen, no palpable masses Skin: no rashes or abrasions, no fluctuance, no induration Neurologic: AAOx3, sensation intact bilaterally, other (gait unsteady, falls backward unexpectedly, ataxic) Psychiatric: interacting appropriately, not anxious, not encephalopathic, thought process linear ICD10 Worksheet Patient Problems: Problems Problem Status Onset Alcohol withdrawal Acute Pancreatitis Acute
[2016-06-11] MEDS: OLANZapine 2.5 MG TAB PO PRN (15:39)
[2016-06-11 17:43] LABS: POTASSIUM 3.8 mEq/L (3.5-5.2)
[2016-06-12] MEDS: LORazepam 1 MG TAB PO PRN ×2 (01:16→04:43)
[2016-06-12] MEDS: OLANZapine 2.5 MG TAB PO PRN ×2 (01:46→07:56)
[2016-06-12] MEDS: traZODone 50 MG TAB PO PRN (04:04)
[2016-06-12 05:21] LABS: POTASSIUM 3.8 mEq/L (3.5-5.2)
[2016-06-12] MEDS ORDERED: POTASSIUM CL 10 MEQ TAB PO ONE (07:11)
[2016-06-12] MEDS: THIAMINE HCL 100 MG TAB PO SCH (07:56)
[2016-06-12] MEDS: PANTOPRAZOLE SODIUM 40 MG TAB PO SCH (07:56)
[2016-06-12] MEDS: LORazepam 2 MG/ML INJ IVP PRN (08:07)
[2016-06-12] MEDS ORDERED: ZIPRASIDONE MESYLATE 20 MG VIAL IM ONE (09:42)
[2016-06-12] MEDS ORDERED: ZIPRASIDONE HCL 40 MG CAP PO PRN (09:43)
[2016-06-12] MEDS ORDERED: LORazepam 2 MG/ML INJ IVP PRN (09:44)
--- NOTE | 2016-06-12 15:43 | HOSPPROG ---
Hospitalist Progress Note Assessment/Plan: * Etoh withdrawal - CIWA still with elevated scores, active hallucinations -benzos + anti-psychotics -very confused, doesn't know where she is, trying aggressively to leave -she is danger to self -medically detained as she does not understand consequences at this point -mother at bedside - she is medical proxy - she desires ongoing medical treatment * Etoh pancreatitis -advancing diet * Etoh hepatitis -LFT improving -patient counselled regarding alcohol cessation * Possible GIB - ? MW tear -empiric PPI * Metabolic/toxic encephalopathy - severe - ongoing DTs -poor ambulation with PT/OT -hopefully with clear in next 24-48 hours * Depression - mom reports possible suicidal ideation -will inquire with patient when able Subjective: Agitated, thinks she is in dentist office Objective: Vital Signs Temp Pulse Resp BP Pulse Ox 36.4 C 84 14 108/67 98 06/12/16 07:36 06/12/16 12:45 06/12/16 12:45 06/12/16 12:45 06/12/16 12:45 Laboratory Results 06/10/16 03:50 06/12/16 04:30 06/11/16 06/12/16 06/13/16 05:59 05:59 05:59 Intake Total 1400 603 Output Total 2 Balance 1398 603 PT 15.0 SEC (12.0-15.0) 06/06/16 09:58 INR 1.18 (0.83-1.16) H 06/06/16 09:58 - Physical Exam Constitutional: no apparent distress, appears nourished, not in pain Cardiovascular: regular rate and rhythym, no murmur, rub, or gallop Respiratory: no respiratory distress, no rales or rhonchi, clear to auscultation Gastrointestinal: normoactive bowel sounds, soft, non-tender abdomen, no palpable masses Skin: no rashes or abrasions, no fluctuance, no induration Neurologic: AAOx3, sensation intact bilaterally Psychiatric: interacting appropriately, not anxious, not encephalopathic, thought process linear ICD10 Worksheet Patient Problems: Problems Problem Status Onset Alcohol withdrawal Acute Pancreatitis Acute
[2016-06-13 00:05] VITALS: TEMP 98.1
[2016-06-13 04:35] LABS: ADD DIFF? YES; ADD MORPH? NO; ADD SCAN? NO; ATYPICAL LYMPHOCYTE FLAG 40 (0-99); FRAGMENT RBC FLAG 0 (0-99); HEMATOCRIT 39.2 % (38.0-47.0); HEMOGLOBIN 13.9 g/dL (12.6-16.3); LEFT SHIFT FLG 20 (0-99); LIPEMIA HEMOLYSIS FLAG 90 (0-99); MEAN CELL HEMOGLOBIN 37.4 pg (27.9-34.1); MEAN CELL HEMOGLOBIN CONCENTR. 35.5 g/dL (32.4-36.7); MEAN CELL VOLUME 105.4 fL (81.5-99.8); MEAN PLATELET VOLUME 10.4 fL (8.7-11.7); PLATELET CLUMPS FLAG 20 (0-99); PLATELET COUNT 225 10^3/uL (150-400); RED BLOOD CELL COUNT 3.72 10^6/uL (4.18-5.33); RED CELL DISTRIBUTION WIDTH 13.2 % (11.5-15.2)
[2016-06-13 04:42] LABS: ANION GAP 13 mEq/L (8-16); CALCIUM 9.2 mg/dL (8.5-10.4); CARBON DIOXIDE 23 mEq/l (22-31); CHLORIDE 101 mEq/L (97-110); CREATININE 0.6 mg/dL (0.6-1.0); GLOMERULAR FILTRATION RATE > 60; GLUCOSE 98 mg/dL (70-100); POTASSIUM 3.7 mEq/L (3.5-5.2); SODIUM 137 mEq/L (134-144)
[2016-06-13 05:23] LABS: PLATELET ESTIMATE ADEQUATE (ADEQ)
[2016-06-13 08:16] VITALS: BP 98/70; PULSE 91; RESP 14; O2SAT 96
[2016-06-13] MEDS: THIAMINE HCL 100 MG TAB PO SCH (08:54)
[2016-06-13] MEDS: PANTOPRAZOLE SODIUM 40 MG TAB PO SCH (08:54)
--- NOTE | 2016-06-13 15:48 | GDS ---
[f rep st] DISCHARGE SUMMARY DISCHARGE DIAGNOSES: 1. Severe alcohol withdrawal. 2. Alcoholic pancreatitis. 3. Alcoholic hepatitis. 4. Gastrointestinal bleed, suspect Vilma-Leonardo tear. 5. Metabolic and toxic encephalopathy. HISTORY: The patient is a 40-year-old female who was drinking heavily until presentation. She pres ented with alcoholic pancreatitis. HOSPITAL COURSE: She went into very severe alcohol withdrawal requiring a prolonged ICU stay, inclu ding a Precedex drip. Her pancreatitis and hepatitis both resolved during this hospitalization. She did have a possible G I bleed, which was suspicious to be a Vilma-Leonardo tear and she was treated empirically with a prot on pump inhibitor, without recurrence. Her mental status and weakness were quite prolonged, with active hallucinations and DTs. Eventually, she did completely clear. On the morning of discharge, she is alert and oriented x3, ambulatory and back to her normal self. Social Work and Behavioral Health have worked with her extensively. Her mom was at bedside through most of this. She has been given resources for alcohol cessation. She plans to return to [facility] with her mom in the short term. DISCHARGE MEDICATIONS: Please see computer record for full detailed list. There were no new medica tions given at the time of hospital discharge. ADDITIONAL DISCHARGE INSTRUCTIONS: Extensive resources given for alcohol treatment. TIME SPENT: Greater than 30 minutes time was spent arranging this discharge. Patient seen examined by me on the day of discharge. /[id number]/MODL
== END 2016-06-13 13:22 | disposition home or self-care (01) | DRG 438 ==
LOC: EDUNIT# → OBSVTOIN 14:20 → F2N 16:16 → F3E 06-11 18:02
PROVIDERS: ADMIT Internal Medicine; ATTEND Internal Medicine
DX: K85.20 Alcohol induced acute pancreatitis without necrosis or infection (principal); K70.10 Alcoholic hepatitis without ascites; F10.232 Alcohol dependence with withdrawal with perceptual disturbance; K22.6 Gastro-esophageal laceration-hemorrhage syndrome; G92 Toxic encephalopathy; F32.9 Major depressive disorder, single episode, unspecified
CPT/HCPCS: 96374; 97112-GP; 97116-GP; 97161-GP; 97162-GP; 97166-GO; 97535-GO; G0472; G0480; J2060; J2405; J3411; J3475; J3486; Q9967

== ENCOUNTER 2017-02-21 17:15 | Inpatient (IN) | payer MEDICAID ==
--- NOTE | 2017-02-21 17:25 | EDPHY ---
H & P Time Seen by Provider: 02/21/17 17:25 HPI/ROS: HPI: This is a 41-year-old female presents with Chief Complaint: Nausea and vomiting Location: Epigastric Quality: Nausea vomiting Duration: Since 4:00 a.m. Signs and Symptoms: no fever, + nausea, + vomiting, + hematemesis, no blood in stool, no abdominal bloating, no diarrhea, no back pain, no urinary symptoms, no vaginal bleeding/discharge, no indigestion, no chest pain, no shortness of breath Timing: Sudden, intermittent episodes Severity: Moderate to severe Context: Patient has a history of alcoholic pancreatitis, alcohol abuse, severe alcohol withdrawal syndrome and upper GI bleeding presents to the ER via ambulance as she reports that she woke up at 4:00 a.m. sudden onset of nausea vomiting occurring every several minutes. She became concerned when over the last hour she started to cough up a dark reddish liquid. She denies any NSAID use. She reports that she has epigastric constant, severe, nonradiating, burning discomfort accompanied by right upper quadrant discomfort that is moderate in nature. She reports that her last drink of alcohol was approximately 12 hr ago and that she normally goes into withdrawal if she has had alcohol within 24 hr. She drinks vodka daily. Chart review shows that her last ER visit that resulted in a admission occurred 06/06/2016 for alcoholic pancreatitis, alcoholic pancreatitis, gastrointestinal bleed with suspected Vilma-Leonardo chair and metabolic and toxic encephalopathy. Due to severe alcohol withdrawal she required a prolonged ICU stay including a Precedex drip. In regards to her Vilma-Leonardo tear she was treated empirically with a proton pump inhibitor without recurrence. Patient reports that she is no longer taking a proton pump inhibitor. Modifying Factors: On route she received 500 cc of normal saline and 8 mg of IV Zofran by EMS without resolution of nausea, vomiting. Comment: ROS: see HPI Constitutional: No fever, no chills, no weight loss Eyes: No blurred vision Respiratory: No shortness of breath, no cough Cardiovascular: No chest pain, no palpitations Gastrointestinal: + nausea, + vomiting, no diarrhea, no hematemesis, no blood in stool Genitourinary: No dysuria, no blood in urine Extremities: No myalgias, no edema Neurologic: No weakness, no numbness Skin: No rashes, no petechiae Hematologic: No bruising, no bleeding MEDICAL/SURGICAL/SOCIAL HISTORY: Medical history: Takes trazodone Surgical history: Denies Social history: CONSTITUTIONAL: awake and alert, no obvious distress HEENT: Atraumatic and normocephalic, PERRL, EOMI. Tympanic membranes clear. Oropharynx clear, no exudate and moist pink mucosa. Airway patent. No lymphadenopathy. No meningismus. Cardiovascular: Normal S1/S2, tachycardia, regular rhythm, without murmur rub or gallop. PULMONARY/CHEST: Symmetrical and nontender. Clear to auscultation bilaterally. Good air movement. No accessory muscle usage. ABDOMEN: Soft, nondistended, right upper quadrant and epigastric moderate tenderness, no rebound, no guarding, no peritoneal signs, no masses or organomegaly. No CVAT. EXTREMITIES: 2/2 pulses, strength 5/5, no deformities, no clubbing, no cyanosis or edema. NEUROLOGICAL: no focal neuro deficits. GCS 15. SKIN: Warm and dry, no erythema. no rash. Good capillary refill. Source: Patient Exam Limitations: No limitations - Medical/Surgical History Hx Asthma: No Hx Chronic Respiratory Disease: No Hx Diabetes: No Hx Cardiac Disease: No Hx Renal Disease: No Hx Cirrhosis: No Hx Alcoholism: No Hx HIV/AIDS: No Hx Splenectomy or Spleen Trauma: No Other PMH: Medical- Denies. Surgical- Denies - Social History Smoking Status: Former smoker Constitutional: Initial Vital Signs Temperature (C) 37 C 02/21/17 17:15 Heart Rate 127 H 02/21/17 17:15 Respiratory Rate 20 02/21/17 17:15 Blood Pressure 107/70 02/21/17 17:15 O2 Sat (%) 96 02/21/17 17:15 O2 Delivery Mode Room Air Allergies/Adverse Reactions: No Known Allergies Allergy (Unverified 04/04/13 11:51) Home Medications: Medication Instructions Recorded NK [No Known Home Meds] 02/21/17 Medical Decision Making - Diagnostics Imaging Results: Imaging Impressions Abdomen X-Ray 02/21/17 17:30 Impression: Abdomen negative for acute localizing features. Specifically, negative for free air. Abdomen/Pelvis CT 02/21/17 17:30 Impression: 1. No nephrolithiasis or hydronephrosis. 2. Probable chronic ascending colitis similar to the June 2016 study. Consider follow-up colonoscopy. 3. Hepatomegaly and hepatic steatosis, without ascites or biliary ductal dilation. 4. Mild atherosclerotic aorta, without aneurysm. Attention: This CT examination is specifically designed to evaluate patients who are clinically suspected of having acute obstructive uropathy. This examination does not use radiographic contrast, and as such, provides only a limited evaluation of the abdomen, pelvis, and retroperitoneum. If there is further clinical suspicion for pathological conditions other than obstructive uropathy, a complete CT evaluation of the abdomen and pelvis utilizing intravenous, oral, and rectal contrast should be considered. Findings and recommendations discussed with Emergency Department physician, Lucía Miller PA-C, at 2025 hours, on February 21, 2017. Final report concurs with initial preliminary interpretation. ED Course/Re-evaluation: Labs, IV fluids, KUB, CT abdomen and pelvis scan, IV medications ordered Occult gastric fluid ordered as concern for upper GI bleed. Heart rate 150s upon arrival Abdominal x-ray my read shows no free air/perforation 1740: Given IV Protonix 80 mg bolus followed by continuous infusion; IV fluids; IV Ativan; IV promethazine 1900: Notified by nursing that blood draw hemolyzed and had to be redrawn and labs reordered. 1920: Lactic acid 10.8 WBCs 20K; severe sepsis protocol initiated Given normal saline 30 mL/kg and IV Invanz ordered for presumed intra-abdominal infection Creatinine 1.5; decision to order CT abdomen and pelvis scan without contrast. Reassessed patient who reports that she has had no vomiting episodes in over 3 hr. She is asking for ice chips. 2020: ED decision to consult for admission, spoke with hospitalist, Dr. Araiza , suspect alcoholic gastritis with bleeding, Vilma-Leonardo tear. Repeat lactic acid down to 6.4 and potassium i-STAT 5.6 with aggressive IV hydration of 4 L This patient was seen under the supervision of my secondary supervising physician. I evaluated care for this patient independently. Discussed this patient with Dr. Lewis who did not see the patient. Patient's presentation, labs/imaging, treatment and plan of care were discussed with secondary supervising physician. Differential Diagnosis: Abdominal pain including but not limited to appendicitis, cholecystitis, pancreatitis, upper GI bleed, gastritis and urinary tract infection. - Data Points Laboratory Results: Laboratory Results 02/21/17 17:15 02/21/17 18:55 02/21/17 02/21/17 02/21/17 20:12 20:10 18:55 WBC RBC Hgb Hct MCV MCH MCHC RDW Plt Count MPV Neut % (Auto) Lymph % (Auto) [place] % (Auto) Eos % (Auto) Baso % (Auto) Nucleat RBC Rel Count Absolute Neuts (auto) Absolute Lymphs (auto) Absolute Monos (auto) Absolute Eos (auto) Absolute Basos (auto) Absolute Nucleated RBC Immature Gran % Immature Gran # Platelet Estimate Oval Macrocytes Smear Review By PT INR APTT VBG Lactic Acid 6.4 mmol/L H mmol/L (0.7-2.1) Sodium 139 mEq/L mEq/L (134-144) Potassium 6.6 mEq/L H* mEq/L (3.5-5.2) Chloride 103 mEq/L mEq/L (97-110) Carbon Dioxide 7 mEq/l L* mEq/l (22-31) Anion Gap 29 mEq/L H mEq/L (8-16) BUN 12 mg/dL mg/dL (7-23) Creatinine 1.5 mg/dL H mg/dL (0.6-1.0) Estimated GFR 38 Glucose 87 mg/dL mg/dL (70-100) Calcium 8.3 mg/dL L mg/dL (8.5-10.4) Total Bilirubin 0.8 mg/dL mg/dL (0.1-1.4) Conjugated Bilirubin Unconjugated Bilirubin AST 233 IU/L H IU/L (14-46) ALT 125 IU/L H IU/L (9-52) Alkaline Phosphatase 96 IU/L IU/L (38-126) Total Protein 6.6 g/dL g/dL (6.3-8.2) Albumin 4.4 g/dL g/dL (3.5-5.0) Amylase 122 IU/L H IU/L (30-110) Lipase 106 IU/L IU/L (23-300) Beta HCG, Qual Specimen Hemolysis Ethyl Alcohol 12 mg/dL H mg/dL (0-10) 02/21/17 02/21/17 02/21/17 18:55 17:15 17:15 WBC RBC Hgb Hct MCV MCH MCHC RDW Plt Count MPV Neut % (Auto) Lymph % (Auto) [place] % (Auto) Eos % (Auto) Baso % (Auto) Nucleat RBC Rel Count Absolute Neuts (auto) Absolute Lymphs (auto) Absolute Monos (auto) Absolute Eos (auto) Absolute Basos (auto) Absolute Nucleated RBC Immature Gran % Immature Gran # Platelet Estimate Oval Macrocytes Smear Review By PT INR APTT VBG Lactic Acid 10.8 mmol/L H mmol/L (0.7-2.1) Sodium TNP Potassium TNP Chloride TNP Carbon Dioxide TNP Anion Gap TNP BUN TNP Creatinine TNP Estimated GFR TNP Glucose TNP Calcium TNP Total Bilirubin TNP Conjugated Bilirubin TNP Unconjugated Bilirubin TNP AST TNP ALT TNP Alkaline Phosphatase TNP Total Protein TNP Albumin TNP Amylase TNP Lipase TNP Beta HCG, Qual NEGATIVE Specimen Hemolysis TNP Ethyl Alcohol TNP 02/21/17 02/21/17 17:15 17:15 WBC 20.89 10^3/uL H 10^3/uL (3.80-9.50) RBC 4.43 10^6/uL 10^6/uL (4.18-5.33) Hgb 16.7 g/dL H g/dL (12.6-16.3) Hct 52.8 % H % (38.0-47.0) MCV 119.2 fL H fL (81.5-99.8) MCH 37.7 pg H pg (27.9-34.1) MCHC 31.6 g/dL L g/dL (32.4-36.7) RDW 13.5 % % (11.5-15.2) Plt Count 157 10^3/uL 10^3/uL (150-400) MPV 11.6 fL fL (8.7-11.7) Neut % (Auto) 89.3 % H % (39.3-74.2) Lymph % (Auto) 2.6 % L % (15.0-45.0) [place] % (Auto) 7.1 % % (4.5-13.0) Eos % (Auto) 0.0 % L % (0.6-7.6) Baso % (Auto) 0.3 % % (0.3-1.7) Nucleat RBC Rel Count 0.0 % % (0.0-0.2) Absolute Neuts (auto) 18.62 10^3/uL H 10^3/uL (1.70-6.50) Absolute Lymphs (auto) 0.55 10^3/uL L 10^3/uL (1.00-3.00) Absolute Monos (auto) 1.49 10^3/uL H 10^3/uL (0.30-0.80) Absolute Eos (auto) 0.01 10^3/uL L 10^3/uL (0.03-0.40) Absolute Basos (auto) 0.07 10^3/uL 10^3/uL (0.02-0.10) Absolute Nucleated RBC 0.00 10^3/uL 10^3/uL (0-0.01) Immature Gran % 0.7 % % (0.0-1.1) Immature Gran # 0.15 10^3/uL H 10^3/uL (0.00-0.10) Platelet Estimate ADEQUATE (ADEQ) Oval Macrocytes 1+ H Smear Review By Pending PT 16.6 SEC H SEC (12.0-15.0) INR 1.32 H (0.83-1.16) APTT 32.0 SEC SEC (23.0-38.0) VBG Lactic Acid Sodium Potassium Chloride Carbon Dioxide Anion Gap BUN Creatinine Estimated GFR Glucose Calcium Total Bilirubin Conjugated Bilirubin Unconjugated Bilirubin AST ALT Alkaline Phosphatase Total Protein Albumin Amylase Lipase Beta HCG, Qual Specimen Hemolysis Ethyl Alcohol Medications Given: Dextrose/Sodium Chloride (D5w 1/2 Ns) 1,000 mls @ 100 mls/hr IV CONT JASS Stop: 08/20/17 22:29 Last Admin: 02/21/17 23:16 Dose: 1,000 mls Thiamine HCl 500 mg/ Sodium (Chloride) 105 mls @ 210 mls/hr IV DAILY JASS Stop: 02/24/17 22:29 Last Admin: 02/21/17 23:16 Dose: 105 mls Discontinued Medications Ertapenem (Invanz) 1 gm IVP EDNOW ONE PRN Reason: Protocol Stop: 02/21/17 19:20 Last Admin: 02/21/17 20:16 Dose: 1 gm Sodium Chloride (Ns) 1,000 mls @ 0 mls/hr IV EDNOW ONE; Wide Open PRN Reason: Protocol Stop: 02/21/17 17:31 Last Admin: 02/21/17 17:54 Dose: 1,000 mls Sodium Chloride (Ns) 1,000 mls @ 0 mls/hr IV EDNOW ONE; Wide Open PRN Reason: Protocol Stop: 02/21/17 17:31 Last Admin: 02/21/17 17:55 Dose: 1,000 mls Pantoprazole Sodium 80 mg/ (Sodium Chloride) 100 mls @ 200 mls/hr IV ONCE ONE Stop: 02/21/17 18:00 Last Admin: 02/21/17 18:43 Dose: 100 mls Pantoprazole Sodium 80 mg/ (Sodium Chloride) 100 mls @ 10 mls/hr IV Q10H ONE Stop: 02/22/17 03:29 Last Admin: 02/21/17 19:14 Dose: 100 mls Sodium Chloride (Ns) 1,600 mls @ 3,200 mls/hr 30 ml/kg infuse over 30 min ( 1600 ml) IV EDNOW ONE PRN Reason: Protocol Stop: 02/21/17 19:48 Last Admin: 02/21/17 19:57 Dose: 1,600 mls Lorazepam (Ativan Injection) 2 mg IVP EDNOW ONE Stop: 02/21/17 17:36 Last Admin: 02/21/17 17:56 Dose: 2 mg Ondansetron HCl (Zofran) 4 mg IVP EDNOW ONE Stop: 02/21/17 17:36 Last Admin: 02/21/17 18:03 Dose: Not Given Promethazine HCl (Phenergan) 12.5 mg IVP ONCE ONE Stop: 02/21/17 17:40 Last Admin: 02/21/17 17:56 Dose: 12.5 mg Departure - Departure Disposition: [facility] Acute Clinical Impression: Alcohol abuse, Hyperkalemia, Severe sepsis Alcoholic gastritis with bleeding Qualifiers: Chronicity: acute Qualified Code(s): K29.21 - Alcoholic gastritis with bleeding Condition: Fair
[2017-02-21] MEDS ORDERED: PANTOPRAZOLE SODIUM 80 MG in NS 100 ML IV ONE ×2 (17:30→17:31)
[2017-02-21] MEDS ORDERED: NS 1,000 ML IV ONE ×2 (17:30)
[2017-02-21] MEDS ORDERED: ONDANSETRON 4 MG/2 ML VIAL IVP ONE (17:35)
[2017-02-21] MEDS ORDERED: LORazepam 2 MG/ML INJ IVP ONE (17:35)
[2017-02-21] MEDS ORDERED: PROMETHAZINE HCL 25 MG/ML INJ IVP ONE (17:39)
[2017-02-21 17:52] LABS: % IMMATURE GRANULYOCYTES 0.7 % (0.0-1.1); ABSOLUTE IMMATURE GRANULOCYTES 0.15 10^3/uL (0.00-0.10); ADD DIFF? NO; ADD MORPH? YES; ADD SCAN? NO; ATYPICAL LYMPHOCYTE FLAG 0 (0-99); FRAGMENT RBC FLAG 0 (0-99); HEMATOCRIT 52.8 % (38.0-47.0); HEMOGLOBIN 16.7 g/dL (12.6-16.3); LEFT SHIFT FLG 20 (0-99); LIPEMIA HEMOLYSIS FLAG 80 (0-99); MEAN CELL HEMOGLOBIN 37.7 pg (27.9-34.1); MEAN CELL HEMOGLOBIN CONCENTR. 31.6 g/dL (32.4-36.7); MEAN PLATELET VOLUME 11.6 fL (8.7-11.7); PLATELET CLUMPS FLAG 0 (0-99); PLATELET COUNT 157 10^3/uL (150-400); RED BLOOD CELL COUNT 4.43 10^6/uL (4.18-5.33); RED CELL DISTRIBUTION WIDTH 13.5 % (11.5-15.2)
[2017-02-21 17:55] LABS: MEAN CELL VOLUME 119.2 fL (81.5-99.8)
[2017-02-21 17:57] LABS: INR 1.32 (0.83-1.16); PROTIME(PATIENT) 16.6 SEC (12.0-15.0)
[2017-02-21 18:37] LABS: PLATELET ESTIMATE ADEQUATE (ADEQ)
[2017-02-21 18:38] LABS: MACROCYTES 1+
[2017-02-21] MEDS ORDERED: NS 1,600 ML IV ONE (19:19)
[2017-02-21] MEDS ORDERED: ERTAPENEM 1 GM VIAL IVP ONE (19:19)
[2017-02-21 19:31] LABS: ALANINE AMINOTRANSFERASE 125 IU/L (9-52); ALBUMIN 4.4 g/dL (3.5-5.0); ALKALINE PHOSPHATASE 96 IU/L (38-126); AMYLASE 122 IU/L (30-110); ANION GAP 29 mEq/L (8-16); ASPARTATE AMINOTRANSFERASE 233 IU/L (14-46); BILIRUBIN,TOTAL 0.8 mg/dL (0.1-1.4); CALCIUM 8.3 mg/dL (8.5-10.4); CHLORIDE 103 mEq/L (97-110); CREATININE 1.5 mg/dL (0.6-1.0); GLOMERULAR FILTRATION RATE 38; GLUCOSE 87 mg/dL (70-100); SODIUM 139 mEq/L (134-144); TOTAL PROTEIN 6.6 g/dL (6.3-8.2)
[2017-02-21 19:34] LABS: POTASSIUM 6.6 mEq/L (3.5-5.2)
[2017-02-21 19:35] LABS: CARBON DIOXIDE 7 mEq/l (22-31)
[2017-02-21 21:04] LABS: ETHANOL SERUM 12 mg/dL (0-10)
[2017-02-21 22:09] LABS: COLOR YELLOW; LEUKOCYTE ESTERASE,URINE NEGATIVE (NEGATIVE); NITRITE,URINE NEGATIVE (NEGATIVE)
[2017-02-21 22:17] LABS: AMORPHOUS PRESENT /hpf (NONE-1+); MUCUS TRACE /lpf (NONE-1+)
[2017-02-21] MEDS ORDERED: LORazepam 2 MG/ML INJ IVP PRN (22:20)
[2017-02-21] MEDS ORDERED: ACETAMINOPHEN 325 MG TAB PO PRN (22:23)
[2017-02-21] MEDS ORDERED: ONDANSETRON DISINTEGRATING 4 MG TAB PO PRN (22:23)
[2017-02-21] MEDS ORDERED: ONDANSETRON 4 MG/2 ML VIAL IVP PRN (22:23)
[2017-02-21] MEDS ORDERED: D5W 1/2 NS 1,000 ML IV SCH (22:30)
[2017-02-21 22:31] LABS: HYALINE CASTS 25-50 /lpf (0-1)
--- NOTE | 2017-02-21 23:01 | GHP ---
[f rep st] HISTORY AND PHYSICAL DATE OF ADMISSION: 02/21/2017 CHIEF COMPLAINT: Nausea, vomiting. HISTORY OF PRESENT ILLNESS: 41-year-old female with a history of alcohol abuse, presents with intrac table nausea, vomiting. She had a similar admission back in June of this year, during which she yazmin t through severe alcohol withdrawal. Her plan is to quit drinking. She is accompanied by her friend , who is very supportive of this. Her last drink was yesterday at noon. Last evening, she had sudde n onset of nausea with countless episodes of emesis. She did not have any diarrhea. Her initial crow sis was purely stomach contents, though they got darker with time. On her last admission, She was di agnosed with a suspected Vilma-Leonardo tear. As above, her last drink was at noon yesterday. She te lls me that she drinks vodka, and she buys a 750 mL bottle about every other day, though it seems as though she told the ER she was drinking about a bottle a day. PAST MEDICAL/SURGICAL HISTORY: 1. Alcohol abuse as above. 2. Alcoholic pancreatitis. MEDICATIONS: None. ALLERGIES: No known drug allergies. SOCIAL HISTORY: Alcohol as above. She denies any other drug use. FAMILY HISTORY: Her brother of an overdose at 52. REVIEW OF SYSTEMS: 10-point review of systems is conducted and is negative except per HPI. PHYSICAL EXAM: VITAL SIGNS: Blood pressure 112/82, heart rate 124, respiration rate 24, saturating 92% on room air. Temperature is 37. GENERAL: The patient is a very pleasant female who appears colt ewhat uncomfortable. Very mildly confused, otherwise in no acute distress. HEENT: Normocephalic at raumatic. CARDIOVASCULAR: Regular rate and rhythm. No murmurs, rubs, or gallops. PULMONARY: Lung s clear to auscultation bilaterally. ABDOMEN: Soft. She is very mildly tender to palpation of the epigastrium. Otherwise, she has normal bowel sounds. SKIN: No rash. GENITOURINARY: No Clark. NE UROLOGIC: Alert and oriented x3. She has a very mild tremor. She does not appear overly anxious. PSYCHIATRIC: Normal mood and affect. LABS: White count is 20.8, MCV is 119, platelets are 157, INR is 1.3. Initial lactate was 10.8, jennifer n to 6.4 with IV fluid. Initial potassium was 6.6, down to 5.6 with IV fluid. Bicarb was 7, creatin ine 1.2. Her gastric occult blood was positive. Alcohol level is 12. DATA: 1. I discussed this with the patient. Will admit to the PCU. 2. I reviewed her abdomen and pelvis CAT scan. This showed no nephrolithiasis. Did show chronic as cending colitis, similar to the previous. It also shows hepatomegaly without any ascites or biliary duct dilation. IMPRESSION AND PLAN: 41-year-old female. 1. Gastritis: Unclear etiology. May be viral versus alcoholic gastritis. I have sent a gastrointe stinal pathogen panel. 2. Hyperkalemia: This has improved significantly with IV hydration. She has not received an EKG ye t. I have ordered this stat. I do not expect it to be significantly abnormal though, given the impr dana potassium. 3. Marked acidosis: She did have a high lactate level, I suspect with hypoperfusion rather than sep sis, also a component of alcoholic and starvation ketoacidosis. This should improve rapidly with IV fluids. 4. Renal failure: This has also improved with fluids. Will continue these overnight. This is prer enal. 5. Alcoholic hepatitis: Expect that this will improve with cessation of alcohol. Will recheck an I NR in the morning as well. 6. Leukocytosis: I think that this is more stress than infection. She did get 1 dose of Invanz; ho jacqueline, I will hold for now and monitor closely. 7. Alcohol abuse: I am concerned about severe withdrawal. Will put her on CIWA for now and place h er in the PCU. She may need to be upgraded to step-down if she worsens. /[id number]/MODL
[2017-02-21] MEDS: THIAMINE HCL 500 MG in NS 100 ML IV SCH (23:16)
--- NOTE | 2017-02-22 00:29 | CPEKG ---
Heart Rate: 116 RR Interval: 517 P-R Interval: 116 QRSD Interval: 74 QT Interval: 332 QTC Interval: 462 P Marcola: 75 QRS Marcola: 62 T Wave Marcola: 24 EKG Severity - BORDERLINE ECG - EKG Impression: SINUS TACHYCARDIA EKG Impression: BORDERLINE T ABNORMALITIES, ANTERIOR LEADS EKG Impression: ADAM FASTER. ANTERIOR T-WAVE ABNORMALITY IS MORE PRONOUNCED. Electronically Signed By: Erin Schroeder 22-Feb-2017 18:55:03
[2017-02-22 00:50] LABS: HEMATOCRIT 33.7 % (38.0-47.0); HEMOGLOBIN 11.3 g/dL (12.6-16.3)
[2017-02-22] MEDS: NICOTINE 21 MG/24 HR PATCH TD SCH ×2 (00:52→08:30)
[2017-02-22 04:21] LABS: % IMMATURE GRANULYOCYTES 0.5 % (0.0-1.1); ABSOLUTE IMMATURE GRANULOCYTES 0.05 10^3/uL (0.00-0.10); ADD DIFF? NO; ADD MORPH? NO; ADD SCAN? NO; ATYPICAL LYMPHOCYTE FLAG 0 (0-99); FRAGMENT RBC FLAG 0 (0-99); HEMATOCRIT 34.1 % (38.0-47.0); HEMOGLOBIN 11.4 g/dL (12.6-16.3); LEFT SHIFT FLG 0 (0-99); LIPEMIA HEMOLYSIS FLAG 80 (0-99); MEAN CELL HEMOGLOBIN 37.1 pg (27.9-34.1); MEAN CELL HEMOGLOBIN CONCENTR. 33.4 g/dL (32.4-36.7); MEAN CELL VOLUME 111.1 fL (81.5-99.8); MEAN PLATELET VOLUME 10.6 fL (8.7-11.7); PLATELET CLUMPS FLAG 0 (0-99); PLATELET COUNT 82 10^3/uL (150-400); RED BLOOD CELL COUNT 3.07 10^6/uL (4.18-5.33); RED CELL DISTRIBUTION WIDTH 13.4 % (11.5-15.2)
[2017-02-22 04:27] LABS: INR 1.29 (0.83-1.16); PROTIME(PATIENT) 16.3 SEC (12.0-15.0)
[2017-02-22 04:38] LABS: ALANINE AMINOTRANSFERASE 89 IU/L (9-52); ALBUMIN 2.9 g/dL (3.5-5.0); ALKALINE PHOSPHATASE 65 IU/L (38-126); ANION GAP 9 mEq/L (8-16); ASPARTATE AMINOTRANSFERASE 171 IU/L (14-46); BILIRUBIN,TOTAL 1.1 mg/dL (0.1-1.4); CARBON DIOXIDE 20 mEq/l (22-31); CHLORIDE 109 mEq/L (97-110); CREATININE 0.9 mg/dL (0.6-1.0); GLOMERULAR FILTRATION RATE > 60; GLUCOSE 173 mg/dL (70-100); MAGNESIUM 1.6 mg/dL (1.6-2.3); POTASSIUM 4.6 mEq/L (3.5-5.2); SODIUM 138 mEq/L (134-144); TOTAL PROTEIN 5.1 g/dL (6.3-8.2)
[2017-02-22] MEDS ORDERED: PROTOCOL K PHOSPHATE 1 DOSE IV PRN (06:55)
[2017-02-22] MEDS ORDERED: PROTOCOL CALCIUM 1 DOSE IV PRN (06:55)
[2017-02-22 08:28] LABS: IONIZED CALCIUM 1.06 MMOL/L (1.12-1.30)
[2017-02-22] MEDS: THIAMINE HCL 500 MG in NS 100 ML IV SCH (08:30)
[2017-02-22] MEDS: chlordiazePOXIDE 25 MG CAP PO SCH ×3 (08:30→23:00)
[2017-02-22] MEDS ORDERED: CALCIUM GLUCONATE 50 ML IV ONE (08:43)
[2017-02-22] MEDS ORDERED: PANTOPRAZOLE SODIUM 40 MG VIAL IVP SCH (09:00)
--- NOTE | 2017-02-22 09:25 | HOSPPROG ---
Hospitalist Progress Note Assessment/Plan: N/V - likely alcohol induced gastritis, symptoms improved. -advance diet as tolerated -add carafate, change to po PPI Alcoholic hepatitis - LFT's trending down. Encouraged cessation. Alcohol dependence with h/o severe w/d requiring ICU care and Precedex in 2016 - minimal w/d symptoms today on scheduled librium -cont librium 50 mg TID with CIWA monitoring and prn ativan -MVI, folic acid, thiamine -possibly d/c home in am with short librium taper if continues to have minimal w/d symptoms -discussed sobriety plan, she has had good success with AA in the past LETICIA - likely pre-renal due to above, resolved with IVF's Metabolic acidosis - likely alcoholic ketoacidosis combined with starvation ketosis. Resolved with IVF's. Elevated lactate - not sepsis, resolving with IVF's -recheck today to ensure this has normalized Hyperkalemia - resolved with hydration Thrombocytopenia - likely BM suppression 2/2 alcohol. No e/o bleeding. Follow. Full code DVT PPLX - pharm deferred due to low plts, SCDs ordered Dispo - cont inpt. CM consult for resource counseling. Possible dc 1-2 days depending on w/d course Subjective: Pt feels much better. No more N/V. Wants to eat. Denies hematemasis, coffee ground emesis, melena or BRBPR. No pain this am. No fever.s Objective: Vital Signs Temp Pulse Resp BP Pulse Ox 37.0 C 106 H 18 107/69 90 L 02/22/17 07:34 02/22/17 07:34 02/22/17 07:34 02/22/17 07:34 02/22/17 07:34 Laboratory Results 02/22/17 03:56 02/22/17 03:56 02/21/17 02/22/17 02/23/17 05:59 05:59 05:59 Intake Total 765 Balance 765 PT 16.3 SEC (12.0-15.0) H 02/22/17 03:56 INR 1.29 (0.83-1.16) H 02/22/17 03:56 - Physical Exam Constitutional: no apparent distress Eyes: PERRL Ears, Nose, Mouth, Throat: moist mucous membranes Cardiovascular: regular rate and rhythym Respiratory: no respiratory distress, clear to auscultation Gastrointestinal: normoactive bowel sounds, soft, non-tender abdomen Skin: warm Musculoskeletal: full muscle strength Neurologic: AAOx3 Psychiatric: interacting appropriately ICD10 Worksheet Patient Problems: Problems Problem Status Onset Alcohol abuse Acute Alcoholic gastritis with bleeding Acute Hyperkalemia Acute Severe sepsis Acute Alcohol withdrawal Acute Pancreatitis Acute
--- NOTE | 2017-02-22 09:39 | PDMN ---
Medical Necessity Medical necessity: est los>2mn for gastritis, viral vs alcoholic, hyperkalemia, marked acidosis, renal failure, and alcoholic hepatitis; admit to PCU for IVF , CIWA and monitor for need for upgrade to ICU/SDU; hx etoh abuse and etoh pancreatitis; per order and H&P 02/21/17
[2017-02-22] MEDS ORDERED: LORazepam 1 MG TAB PO PRN (09:56)
[2017-02-22] MEDS ORDERED: 1/2 NS 1,000 ML IV SCH (10:00)
[2017-02-22 10:49] LABS: HEMATOCRIT 33.1 % (38.0-47.0); HEMOGLOBIN 11.4 g/dL (12.6-16.3)
--- NOTE | 2017-02-22 10:56 | ASMTCMCOM ---
CM Note CM Note Notes: 02/22/2017 Case Management Note Met w/pt. Pt reports after d/c in June returning to [place] and living with mom for approximately one month. She achieved sobriety with the support of a sponsor while in [place]. Pt was able to maintain sobriety for 2 months after returning to [place]. Pt reports drinking 1/2 bottle of vodka per day. Pt lives with a house mate who drinks on a daily basis but limits himself to 2 beers per day. Pt has concerns about leaving her dogs for inpatient alcohol rehab. Pt is not ready at this time to return to [place]. Case Management provided alcohol cessation resources for inpatient, intensive outpatient and counseling support. Encouraged pt to create a support network as she attempts sobriety after this hospital d/c. Case Management d/c poc: home independent when medically stable. Case Management available if needs change. Date Signed: 02/22/2017 10:56 AM Electronically Signed By:Patrizia Berger RN
[2017-02-22] MEDS: FOLIC ACID 1 MG TAB PO SCH (11:09)
[2017-02-22] MEDS: MULTIVITAMINS 1 EACH TAB PO SCH (11:09)
[2017-02-22] MEDS: SUCRALFATE 1 GM TAB PO SCH ×3 (11:09→20:13)
[2017-02-22] MEDS ORDERED: K PHOS 20 MMOL in D5W 250 ML IV ONE (12:00)
[2017-02-22 14:36] LABS: HEMATOCRIT 35.6 % (38.0-47.0); HEMOGLOBIN 12.3 g/dL (12.6-16.3)
[2017-02-22 18:47] LABS: HEMATOCRIT 35.9 % (38.0-47.0); HEMOGLOBIN 12.7 g/dL (12.6-16.3)
[2017-02-23 04:36] LABS: IONIZED CALCIUM 1.13 MMOL/L (1.12-1.30)
[2017-02-23 05:54] LABS: % IMMATURE GRANULYOCYTES 0.4 % (0.0-1.1); ABSOLUTE IMMATURE GRANULOCYTES 0.03 10^3/uL (0.00-0.10); ADD DIFF? NO; ADD MORPH? NO; ADD SCAN? NO; ATYPICAL LYMPHOCYTE FLAG 0 (0-99); FRAGMENT RBC FLAG 0 (0-99); HEMATOCRIT 35.8 % (38.0-47.0); HEMOGLOBIN 12.5 g/dL (12.6-16.3); LEFT SHIFT FLG 0 (0-99); LIPEMIA HEMOLYSIS FLAG 90 (0-99); MEAN CELL HEMOGLOBIN 37.8 pg (27.9-34.1); MEAN CELL HEMOGLOBIN CONCENTR. 34.9 g/dL (32.4-36.7); MEAN CELL VOLUME 108.2 fL (81.5-99.8); PLATELET CLUMPS FLAG 0 (0-99); PLATELET COUNT 79 10^3/uL (150-400); RED BLOOD CELL COUNT 3.31 10^6/uL (4.18-5.33); RED CELL DISTRIBUTION WIDTH 13.3 % (11.5-15.2)
[2017-02-23 06:10] LABS: ALANINE AMINOTRANSFERASE 84 IU/L (9-52); ALBUMIN 3.1 g/dL (3.5-5.0); ALKALINE PHOSPHATASE 84 IU/L (38-126); ANION GAP 14 mEq/L (8-16); ASPARTATE AMINOTRANSFERASE 136 IU/L (14-46); BILIRUBIN,TOTAL 0.9 mg/dL (0.1-1.4); CALCIUM 8.6 mg/dL (8.5-10.4); CARBON DIOXIDE 22 mEq/l (22-31); CHLORIDE 104 mEq/L (97-110); CREATININE 0.7 mg/dL (0.6-1.0); GLOMERULAR FILTRATION RATE > 60; GLUCOSE 62 mg/dL (70-100); MAGNESIUM 1.8 mg/dL (1.6-2.3); POTASSIUM 3.8 mEq/L (3.5-5.2); SODIUM 140 mEq/L (134-144); TOTAL PROTEIN 5.2 g/dL (6.3-8.2)
[2017-02-23] MEDS ORDERED: PANTOPRAZOLE SODIUM 40 MG TAB PO SCH (09:00)
[2017-02-23] MEDS: SUCRALFATE 1 GM TAB PO SCH ×2 (09:25→13:43)
[2017-02-23] MEDS: FOLIC ACID 1 MG TAB PO SCH (09:43)
[2017-02-23] MEDS: NICOTINE 21 MG/24 HR PATCH TD SCH (09:43)
[2017-02-23] MEDS: MULTIVITAMINS 1 EACH TAB PO SCH (09:43)
[2017-02-23] MEDS: chlordiazePOXIDE 25 MG CAP PO SCH (09:43)
[2017-02-23] MEDS: THIAMINE HCL 500 MG in NS 100 ML IV SCH (09:44)
[2017-02-23] MEDS ORDERED: K PHOS 10 MMOL in D5W 250 ML IV ONE (12:00)
[2017-02-23 12:01] VITALS: BP 123/91; PULSE 91; RESP 14; TEMP 98.3; O2SAT 97
--- NOTE | 2017-02-23 14:12 | PDDCSUM ---
Discharge Summary Discharge Summary: 41 yo female admitted with ETOH WD and alcohol induced gastritis and upper GIB. Now better. Will be discharged with Short Librium taper I offered one more day of hospitalization, but she is requesting discharge Cont PPI Cont Carate Bleeding has resolved D/C DIAGNOSIS: UGIB: resolved, PPI, Carafate, H/H stable N/V - likely alcohol induced gastritis, symptoms improved. -advance diet as tolerated -add carafate, change to po PPI Alcoholic hepatitis - LFT's trending down. Encouraged cessation. Alcohol dependence with h/o severe w/d requiring ICU care and Precedex in 2016 - minimal w/d symptoms today on scheduled librium -Librium taper -MVI, folic acid, thiamine LETICIA - likely pre-renal due to above, resolved with IVF's Metabolic acidosis - likely alcoholic ketoacidosis combined with starvation ketosis. Resolved with IVF's. Elevated lactate - not sepsis, resolving with IVF's Hyperkalemia - resolved with hydration Thrombocytopenia - likely BM suppression 2/2 alcohol. No e/o bleeding. Follow. EXAM: VSS NAD AAOX3 RRR CTA B S/NT/ND NO LE EDEMA NO TREMOR D/C MEDS: SEE MED REC TOTAL TIME SPENT ON DISCHARGE IS 35 MINUTES
[2017-02-24] MEDS ORDERED: THIAMINE HCL 100 MG TAB PO SCH (09:00)
--- NOTE | 2017-02-24 15:09 | ASDISCHSUM ---
Discharge Information Plan Status:Home with No Needs Medically Cleared to Leave:02/22/2017 Discharge Date:02/23/2017 03:31 PM CM D/C Disposition: ADT D/C Disposition:Home, Routine, Self-Care Projected Discharge Date:02/23/2017 12:00 AM Transportation at D/C: Discharge Delay Reason: Follow-Up Date:02/23/2017 12:00 AM Discharge Slot: Final Diagnosis: Placement Information Patient Contact Information Contact Name:TAMARA Relationship:Mother Address:[address] Work Phone: [facility] Phone: State/Zip Code:[place] [address] Email: Financial Information Financial Class: Primary Plan Desc:[employer] [place] Primary Plan Number:[id number] Secondary Plan Desc: Secondary Plan Number: Assessment Information [facility] CM Progress Note CM Note CM Note Notes: 02/22/2017 Case Management Note Met w/pt. Pt reports after d/c in June returning to [place] and living with mom for approximately one month. She achieved sobriety with the support of a sponsor while in [place]. Pt was able to maintain sobriety for 2 months after returning to [place]. Pt reports drinking 1/2 bottle of vodka per day. Pt lives with a house mate who drinks on a daily basis but limits himself to 2 beers per day. Pt has concerns about leaving her dogs for inpatient alcohol rehab. Pt is not ready at this time to return to [place]. Case Management provided alcohol cessation resources for inpatient, intensive outpatient and counseling support. Encouraged pt to create a support network as she attempts sobriety after this hospital d/c. Case Management d/c poc: home independent when medically stable. Case Management available if needs change. Date Signed: 02/22/2017 10:56 AM Electronically Signed By:Patrizia Berger RN Intervention Information
== END 2017-02-23 15:31 | disposition home or self-care (01) | DRG 378 ==
LOC: EDUNIT# → F2W 22:14
PROVIDERS: ADMIT Student in an Organized Health Care Education/Training Program; ATTEND Student in an Organized Health Care Education/Training Program
DX: K29.21 Alcoholic gastritis with bleeding (principal); F10.239 Alcohol dependence with withdrawal, unspecified; N17.9 Acute kidney failure, unspecified; E87.5 Hyperkalemia; E87.2 Acidosis; D69.6 Thrombocytopenia, unspecified; K70.10 Alcoholic hepatitis without ascites; Z87.891 Personal history of nicotine dependence
CPT/HCPCS: 82947-QW; 96365; 96366; 97161-GP; G0480; J0610; J1335; J2060; J2550; J3411